=== PATIENT | male | born 1980 | race Two or more races ===

== ENCOUNTER 2023-10-30 12:38 | Inpatient (IN) ==
[2023-10-30] MEDS ORDERED: SODIUM CHLORIDE 0.9% 1,000 ML IV SCH (14:00)
[2023-10-30 14:15] LABS: Basophils # (auto) 0.05 K/uL (0.00-0.20); Basophils % (auto) 0.8 %; Eosinophils # (auto) 0.03 K/uL (0.00-0.50); Eosinophils % (auto) 0.5 %; Hematocrit (blood only) 48.8 % (42.0-52.0); Hemoglobin 16.7 g/dl (14.0-18.0); Immature Granulocytes # (auto) 0.04 K/uL (0.01-0.20); Immature Granulocytes % (auto) 0.6 %; Lymphocytes # (auto) 1.96 K/uL (1.20-3.40); Lymphocytes % (auto) 30.2 %; Mean Corpuscular Hemoglobin 31.6 pg (25.0-34.0); Mean Corpuscular Hgb Conc 34.2 g/dL (32.0-36.0); Mean Corpuscular Volume 92.4 fL (80.0-100.0); Mean Platelet Volume 9.7 fL (9.4-12.4); Monocytes # (auto) 0.51 K/uL (0.11-0.59); Monocytes % (auto) 7.8 %; Neutrophils # (auto) 3.91 K/uL (1.40-6.50); Neutrophils % (auto) 60.1 %; Platelet Count 311 K/uL (130-400); RDW Standard Deviation 43.8 fL (36.4-46.3); Red Blood Count 5.28 M/uL (4.70-6.10)
[2023-10-30 14:19] LABS: Albumin Globulin Ratio 1.4 (0.9-2); Albumin Level 4.5 gm/dl (3.4-5.0); BUN Creatinine Ratio 17.8 (10-20); Bilirubin,Total 0.4 mg/dl (0.2-1.0); Calcium 9.1 mg/dl (8.6-10.3); Creatinine Clr Calc Pharmacy 127.8 ml/min; Est GFR (African American) 129.8 ml/min; Globulin 3.2 gm/dl (2.5-4.0); Magnesium 2.1 mg/dl (1.7-2.4); Potassium 3.7 mmol/L (3.5-5.1); Total Protein 7.7 gm/dl (6.0-8.3)
[2023-10-30 14:25] LABS: Troponin I High Sensitivity 2.4 pg/ml (0-20)
[2023-10-30 14:34] LABS: Thyroid Stimulating Hormone 1.841 uIu/ml (0.300-4.500)
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
--- NOTE | 2023-10-30 15:13 | XRay Report ---
XR chest 1V portable HISTORY: weakness COMPARISON: None. FINDINGS: No pneumothorax. No pleural effusions. The cardiac silhouette is mildly enlarged. There is mild central pulmonary vascular congestion without overt edema. No acute fractures. There are low justice g volumes. IMPRESSION: Cardiomegaly with mild central pulmonary vascular congestion. ACT 112: Negative or not required by law. Electronically signed by: Perez Lewis M.D. 10/30/2023 3:12 PM
[2023-10-30 15:16] LABS: Appearance Urine Clear (Clear); Bacteria Urine Automated Negative (Negative); Bilirubin Urine Negative (Negative); Blood Urine Trace (Negative); Cast Urine Automated 0 /lpf (0-5); Color Urine Yellow; Epithelial Cell Urine Auto 0-5 /lpf (0-5); Glucose Urine UA Negative (Negative); Ketones Urine Trace (Negative); Leukocyte Esterase Urine Negative (Negative); Nitrite Urine Negative (Negative); Protein Urine Negative (Negative); RBC Urine Automated 0-4 /hpf (0-4); Specific Gravity Urine 1.021 (1.000-1.030); Urobilinogen Urine Negative (Negative)
[2023-10-30 15:42] LABS: Amphetamines+Metham, Urine Neg (Neg); Barbiturates, Urine Neg (Neg); Benzodiazepine, Urine Neg (Neg); Cocaine, Urine Neg (Neg); MDMA (Ecstacy), Urine Neg (Neg); Marijuana, Urine Neg (Neg); Methadone, Urine Neg (Neg); Opiate, Urine Neg (Neg); Phencyclidine, Urine Neg (Neg)
[2023-10-30] MEDS ORDERED: LORazepam 1 MG/1 ML SYR ED Inj Use IV STA (15:45)
[2023-10-30] MEDS ORDERED: levETIRAcetam 1,000 MG in 0.9 % SODIUM CHLORIDE 100 ML IV STA (15:45)
[2023-10-30 16:49] LABS: Base Excess VBG -2.2 mEq/L; HCO3 VBG 24 mmol/L; Oxygen Saturation VBG 92.5 %; PCO2 VBG 44 mmHg (38-50); PO2 VBG 69 mmHg; pH VBG 7.34 (7.36-7.41)
[2023-10-30] MEDS ORDERED: LORazepam 3 MG in SYRINGE 1.5 ML IV PRN (16:49)
[2023-10-30] MEDS ORDERED: LORazepam 1 MG in SYRINGE 0.5 ML IV PRN (16:49)
[2023-10-30] MEDS ORDERED: LORazepam 2 MG in SYRINGE 1 ML IV PRN ×2 (16:49→19:10)
[2023-10-30] MEDS ORDERED: Ativan IV Alcohol Withdrawal--Active Protocol IV PRN (16:49)
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
[2023-10-30] MEDS ORDERED: MULTI-VITAMIN INFUSION 10 ML, THIAMINE HCL 100 MG, FOLIC ACID 1 MG in SODIUM CHLORIDE 0... IV ONE (17:15)
--- NOTE | 2023-10-30 18:12 | XRay Report ---
KUB HISTORY: MRI clearance. COMPARISON: None. FINDINGS: The bowel gas pattern is unremarkable. There are no dilated loops of small bowel to suggest an obstruction. No renal calculi. No ureteral calculi. No pneumoperitoneum or pneumatosis. There ar e overlying monitoring leads. Otherwise, no radiopaque foreign bodies. Moderate fecal retention. IMPRESSION: No radiopaque foreign bodies. ACT 112: Negative or not required by law. Electronically signed by: Perez Lewis M.D. 10/30/2023 6:11 PM
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
[2023-10-30] MEDS ORDERED: INFLUENZA VIRUS QUADRIVALENT VACCINE (IIV4) 0.5 ML SYR IM ONE (20:24)
[2023-10-31] MEDS ORDERED: ONDANSETRON INJ 2 MG/ML 2 ML VIAL IV PRN (00:03)
[2023-10-31] MEDS ORDERED: ACETAMINOPHEN 325 MG TAB PO PRN (00:26)
[2023-10-31 07:24] LABS: Basophils # (auto) 0.05 K/uL (0.00-0.20); Basophils % (auto) 0.5 %; Eosinophils # (auto) 0.12 K/uL (0.00-0.50); Eosinophils % (auto) 1.2 %; Hematocrit (blood only) 43.7 % (42.0-52.0); Hemoglobin 15.4 g/dl (14.0-18.0); Immature Granulocytes # (auto) 0.03 K/uL (0.01-0.20); Immature Granulocytes % (auto) 0.3 %; Lymphocytes # (auto) 2.43 K/uL (1.20-3.40); Lymphocytes % (auto) 25.2 %; Mean Corpuscular Hgb Conc 35.2 g/dL (32.0-36.0); Mean Corpuscular Volume 90.9 fL (80.0-100.0); Mean Platelet Volume 9.5 fL (9.4-12.4); Monocytes # (auto) 0.68 K/uL (0.11-0.59); Monocytes % (auto) 7.1 %; Neutrophils # (auto) 6.32 K/uL (1.40-6.50); Neutrophils % (auto) 65.7 %; Platelet Count 272 K/uL (130-400); RDW Coefficient of Variation 12.9 % (11.5-14.5); RDW Standard Deviation 42.5 fL (36.4-46.3); Red Blood Count 4.81 M/uL (4.70-6.10); White Blood Count 9.63 K/ul (4.8-10.8)
--- NOTE | 2023-10-31 07:42 | Electrocardiogram Report ---
Test Reason : Blood Pressure : / mmHG Vent. Rate : 098 BPM Atrial Rate : 098 BPM P-R Int : 164 ms QRS Dur : 092 ms QT Int : 340 ms P-R-T Axes : 044 -17 034 degrees QTc Int : 434 ms Normal sinus rhythm Normal ECG No previous ECGs available Confirmed by Pablo Simpson ([id number]) on 10/31/2023 7:42:23 AM Referred By: Confirmed By:Edward Simpson
[2023-10-31 08:13] LABS: BUN Creatinine Ratio 14.7 (10-20); Calcium 8.9 mg/dl (8.6-10.3); Creatinine Clr Calc Pharmacy 124.4 ml/min; Est GFR (African American) 128.4 ml/min; Est GFR (Non-African American) 110.8 ml/min; Potassium 3.8 mmol/L (3.5-5.1)
[2023-10-31] MEDS ORDERED: THIAMINE HCL 100 MG TAB PO SCH (09:00)
[2023-10-31] MEDS ORDERED: FOLIC ACID 1 MG in SYRINGE 9.8 ML IV SCH (09:00)
--- NOTE | 2023-10-31 14:51 | Discharge Summary ---
Date of Service October 31, 2023 Admission HPI Per Admitting Provider Mr. Blake is a 43-year-old male who was pulled over for driving erratically by police. After being pulled over he became unresponsive reportedly received a chest compression and 2 doses of Narcan immediately woke up but was very confused. He primarily speaks Salvadorean with some Dutch and told police that he only had 42 days to live due to a brain tumor and was driving from [facility] to see family, does not use alcohol or any recreational drugs. he was brought to the ER for evaluation and was found to have an alcohol level of 170. With an otherwise negative urine tox. He was being prepared for potential discharge when he had a seizure observed by staff and received 1 mg of Ativan followed by Keppra 1 g load patient is somnolent awakens transiently but does not answer questions or follow meaningful commands. gross electrolyte abnormality. Anion gap of 14? Alcohol induced fatty acid metabolism, urine is with ketones. He does not have elevated creatinine. Bicarb is 21. Prolactin is pending, lactate is normal. UA does not appear infected, patient is afebrile, and does not have a leukocytosis CThead shows no acute abnormality and no mass Chest x-ray: Cardiomegaly with mild vascular congestion VBG pending, SpO2 is normal No meaningful history is able to be obtained from the patient at time of bedside assessment due to sedation. Admission Exam Per Admitting Provider General: Somnolent, awakens to voice and noxious stimuli but does not give meaningful answers to questions or follow commands HEENT: Atraumatic, normocephalic. Pupils equal and reactive to light at time of assessment. Approximately 3-4 mm. Pulm: CTAB A&P. -wheezes, -rales, -rhonchi. Symmetrical chest rise. No increased work of breathing. No respiratory distress. Cardiac: Regular, tachycardic. radial pulses intact and symmetrical. Abdominal: Nontender, nondistended, soft. BS present. Extremities: Warm, slightly moist Principal Diagnosis alcohol intoxication, seizure-like activity Discharge Exam Constitutional: well appearing, no acute distress HEENT: normocephalic, no conjunctival injection CV: clinically well perfused Respiratory: No increased work of breathing MSK: no gross deformities noted Skin: warm, dry, no rashes Neuro: alert, oriented, no FND noted Discharge Data Allergies Allergy/AdvReac Type Severity Reaction Status Date / Time Unable to Assess Allergy Unverified 10/30/23 16:26 Ordered Studies 10/30/23 13:48 CT head/brain wo con Stat Impression: No acute intracranial abnormality. Hospital Course (1) Seizure-like activity: Pt is a 43 yo male with unknown PMH presenting to the hospital by way of EMS d/t unresponsiveness after pt was pulled over by police. He was going to be discharged from the ER, but pt then had a witnessed seizure. Seizure-like activity - per the pt, he has had seizures in the past but only associated with heavy alcohol use - per pt, he only drinks ~once per month; d/t this, low risk for alcohol withdrawal (pt not showing any signs of withdrawal prior to d/c) - advised pt to avoid alcohol use to avoid future seizures - ppx seizure medication not indicated at this time d/t obvious trigger and ability to avoid that trigger - recommend pt establish with outpatient PCP Migraines - headaches described by pt most consistent with migraines - pt explains that he does not have a known brain tumor- he was worried that he may have one d/t the headaches he was experiencing - recommend NSAIDs/tylenol PRN to help with headaches (2) Alcoholic intoxication: (3) Migraines: Total Time Total Time Spent Total Time Spent (In Minutes): <30 Discharge Plan Discharge Items Patient Disposition: Home - Self-Care Reason For Visit: SEIZURE, AMS, ETOH Discharge Diagnosis: alcohol intoxication, seizures Activity: Per Instructions section Non-emergency contact: Primary Care Provider Call non-emergency contact if: you have any medication questions and your symptoms worsen Follow-up/Referrals: PCP,NO [Primary Care Provider] - Diet: Regular Addtl Attending Provider Instructions: You were admitted to the hospital for seizure-like activity. You were treated with medication to stop the seizure. There were no repeat seizures during your hospital stay. It appears that your seizures only occur when you drink alcohol- it is recommended that you abstain from alcohol to prevent any further seizures. The headaches that you describes also sound like migraines. At the first hint of a migraine, it is recommended to take pain medication (Advil, ibuprofen, ty lenol, etc) and this may help decrease the intensity and length of the migraine. A discharge summary will be sent to your primary care physician to ensure continuity of care. Please bring this discharge summary with you to your next office appointment so that your provider can review it at that time. Medications: Your medication list has been reviewed and reconciled upon discharge to ensure accuracy and continuity of care. An updated list of all your medications is included with your hospital discharge paperwork. Please review this list closely and make note of any changes to your medications. - No medications have been added to your home regimen. Follow up appointments: - Make a follow up appointment with your PCP within the next week. It is very important that you follow up with them shortly after discharge from the hospital. - Keep all of your follow up appointments as already scheduled. If you cannot make an appointment, notify your provider. CONTACT YOUR PRIMARY CARE PROVIDER if you experience any of the following: - Difficulty following your treatment plan - Difficulty taking any of your medications CALL 911 OR GO TO THE EMERGENCY DEPARTMENT if you experience any of the following: - Sudden, severe abdominal pain or nausea/vomiting - Severe chest pain or chest pain that radiates to your jaw or arm - Sudden, severe shortness of breath or difficulty breathing Pending Studies at Discharge: No Stand-Alone Forms: My [facility], Smoking Cessation Medications and DC Order Prescriptions: No Action No Known Home Medications Discharge Orders: Discharge Order (Routine); Ordered 10/31/23 Ordered By: Tiny Leroy/Other Patient Handouts: Self-Care for Headaches, Migraine Triggers, Migraine Prevention Admission Data Admit Date/Time: 10/30/23 16:53 Attending Provider: Carter Tamayo Admit Provider: Kalin Norris Primary Care Provider: PCP,NO Other Interventions: Discharge Summary Assessment (RN) Last Done: 10/31/23 15:21 Supervising Physician Co-Signing Physician Notes I personally examined the patient and verified all miller points of history and exam, discussed case, and agree with decision making with Dr Bowden Discussion and assisted with medical imaging director. Patient notes that he has had seizures before, but only in the context of alcohol intoxication. Never without. He notes that he had probably 3 or so days of a predominantly lateral temporal headache and some difficulty with bright lights. He denies any history of a brain tumor, and whenever asked about him saying last night that he had a brain tumorhe wonders if he was just talking about his concern that the headaches could be tumor related. But again reiterates that he has never been told that he has any sort of a brain tumor. He does not feel weak or shaky, he does not feel sweaty or anxious. He would very much like to leave the hospital. As far as alcohol use, he notes that he probably drinks about once a month. Vitals noted, in general he is awake and alert pleasant no distress. HEENT normocephalic atraumatic mucous membranes moist. Breathing unlabored no accessory muscle use good effort. Skin shows no rashes no pallor or icterus. Neuro without focal deficits. Labs and imaging all reviewed. Patient declined MRI. Alcohol intoxicationseems to have resolved, no signs or symptoms of alcohol withdrawal, and while he is only probably 16 hours removed from his last drink whenever I see him, given that he only drinks about once a month, he is very low risk for withdrawal Seizuregiven that he has seized before, obviously consideration was given to seizure prophylaxis with an anticonvulsant, but given that it only happens in the context of alcohol intoxication, discussed with patient that obviously would be much wiser to simply abstain from alcohol use altogether, which he thought he could do. HeadacheCT head without any masses/bleed/etc., MRI had been ordered initially because of his expression of having had a brain tumor, but on questioning today he denies ever having had a brain tumor being told of a tumor, etc.and given that his headaches sound very migrainous, now that the question of a prior history of known tumor has been settledand is not the caseI do not see the need for higher level brain imaging for what seems to have been 3 days of migraines. I did discuss that he should have follow-up with a PCP. Stable for discharge with family, certainly would not want him driving. At the same time, unfortunately he apparently needed to be discharged into police custodywhich is also safe given that he would be supervised. otherwise as above Resident Activity Tracking Resident Involvement: Resident Care Provided Care Provided: Adult Hospital Medicine
--- NOTE | 2023-10-31 16:37 | Billing Data ---
Date of Service October 31, 2023 Coding Level of Care Code 23832 IN/OBS DISCH 30 MIN/LESS
== END 2023-10-31 16:02 | disposition home or self-care (01) | DRG 101 ==
LOC: ED 12:38 → 2E 16:53 → SUATTDRO 16:53 → 2E 18:42